=== PATIENT | female | born 2005 | race African-American/Black ===

== ENCOUNTER 2024-03-25 09:01 | Observation (INO) | payer BC, SELFPAY ==
[2024-03-25 10:12] LABS: Appearance Urine UA CLEAR; Bilirubin Urine UA NEGATIVE (NEGATIVE); Color Urine UA YELLOW; Glucose Urine UA 2+ g/dL (Negative); Ketones Urine UA 1+ (NEGATIVE); Leukocyte Esterase Urine UA NEGATIVE (NEGATIVE); Nitrite Urine UA NEGATIVE (Negative); Occult Blood Urine UA NEGATIVE (Negative); Protein Urine UA TRACE (Negative); Urobilinogen Urine UA 0.2 E.U./dL (0.2)
[2024-03-25 10:23] LABS: Bacteria Urine None Seen; Culture Indicated Urine Specimen Cultured; RBC Urine None Seen (0-5/HPF); Sperm Urine P; Squamous Epithelial Cell Urine 1-5 /HPF (0-5/HPF); Urine Volume 10mL (spun); WBC Urine 1-5/HPF (0-5/HPF)
[2024-03-25 10:32] LABS: Add Manual Diff / Slide Review NO; Basophils Absolute Auto 0 /uL (0-100); Basophils Percent Auto 0.3 % (0-2); Eosinophils Absolute Auto 200 /uL (0-450); Eosinophils Percent Auto 1.5 % (2-4); Hematocrit 31.5 % (36-46); Hemoglobin 10.5 g/dL (12.0-16.0); Lymphocytes Absolute Auto 2300 /uL (1100-4500); Lymphocytes Percent Auto 20.1 % (25-40); Mean Corpuscular HGB Conc 33.4 % (30-36); Mean Corpuscular Hemoglobin 32.2 PG (26-34); Mean Corpuscular Volume 96.4 fL (80-100); Monocytes Absolute Auto 700 /uL (0-900); Neutrophils Absolute Auto 8200 /uL (1500-7000); Neutrophils Percent Auto 72.1 % (50-75); Platelet Count 179 X10^3/uL (150-400); Red Blood Cell Count 3.27 X10^6/uL (4.0-5.2); Red Cell Distribution Width 13.6 % (11.6-14.8); White Blood Cell Count 11.4 X10^3/uL (4.5-11.0)
[2024-03-25 10:39] LABS: HEMOLYSIS < 15 (0-50)
[2024-03-25 10:44] LABS: Alanine Aminotransferase 20 IU/L (<35); Albumin 3.2 g/dL (3.5-5.0); Albumin Globulin Ratio 1.1 (1.0-2.8); Alkaline Phosphatase 115 U/L (38-126); Aspartate Aminotransferase 27 IU/L (14-36); BUN Creatinine Ratio 8.6 (6-22); Bilirubin Total 0.3 mg/dL (0.2-1.3); Blood Urea Nitrogen 5 mg/dL (7-17); Calcium 8.7 mg/dL (8.4-10.2); Carbon Dioxide 19 mmol/L (22-32); Chloride 107 mmol/L (98-107); Estimated Glomerular Filt Rate > 60 mL/min (>60); Globulin 2.8 g/dL (1.7-4.1); Glucose 222 mg/dL (70-100); Potassium 3.3 mmol/L (3.4-5.1); Sodium 134 mmol/L (137-145)
[2024-03-25 10:53] LABS: Ketones (Beta-Hydroxybutyrate) 0.06 mmol/L (<0.27)
--- NOTE | 2024-03-25 10:55 | P.TNLD_ITS ---
Visit Information Visit Information Date of evaluation: 03/25/24 Primary OB Provider: [facility] On-call OB Provider: Bre Cuevas Reason for Evaluation: Yes other Comments/Additional reasons for admission: 19yo G1 at 34w1d by stated EDC with T1DM presents to triage for evaluation, 24h h/o vomiting with diarrhea now resolved. Patient states she recently spent some time with a family member that had GI illness and also experiences weekly vomiting whenever I get to a new week of the . She states that yesterday she was unable to tolerate any PO intake and vomiting approximately 5- 7x and had several episodes of diarrhea. Pt receives all PNC at [facility] secondary to T1DM. Current insulin regimen is 26u basal qAM, total of 40-50u short-acting insulin pending CGM readings. This AM pt states she felt much better and was able to eat breakfast ([employer] sandwich, sprite). She had called her primary OB for recs given repeated episodes of emesis and was instructed to present to closest facility for further evaluation Vital Signs Vital Signs: maternal VSS/afebrile, reviewed in OBIX Review of Systems Review of Systems ROS: Yes All systems reviewed with the patient and are negative except as otherwise documented Exam Vital Signs Glucose POC: 305 Const General: cooperative, healthy appearing, comfortable and well developed Nutritional Appearance: overweight Orientation: alert, awake and oriented x3 Limitations: mental status not altered HENMT Mouth: moist mucous membranes and No malodorous breath Resp Effort & Inspection: normal respiratory effort and able to speak in complete sentences Cardio Rate: regular rate Pulses: normal peripheral pulses GI Inspection: normal to inspection Palpation: soft Other: gravid, size approx dates Other: deferred Skin General: no rashes or lesions noted Neuro General: patient alert, patient awake and patient oriented x3 Extrem General: normal to inspection Psych Mental Status: mental status grossly normal Judgment: judgment good Objective Labs 03/25/24 Unknown 03/25/24 Unknown Labs: Laboratory Results - last 24 hr 03/25/24 03/25/24 09:50 Unknown WBC 11.4 H RBC 3.27 L Hgb 10.5 L Hct 31.5 L MCV 96.4 MCH 32.2 MCHC 33.4 RDW 13.6 Plt Count 179 Neut % (Auto) 72.1 Lymph % (Auto) 20.1 L [place] % (Auto) 6.0 Eos % (Auto) 1.5 L Baso % (Auto) 0.3 Neut # (Auto) 8200 H Lymph # (Auto) 2300 [place] # (Auto) 700 Eos # (Auto) 200 Baso # (Auto) 0 Sodium 134 L Potassium 3.3 L Chloride 107 Carbon Dioxide 19 L BUN 5 L Creatinine 0.58 Estimated GFR > 60 BUN/Creatinine Ratio 8.6 Glucose 222 H Calcium 8.7 Total Bilirubin 0.3 AST 27 ALT 20 Alkaline Phosphatase 115 Total Protein 6.0 L Albumin 3.2 L Globulin 2.8 Albumin/Globulin Ratio 1.1 Urine Color Yellow Urine Appearance Clear Urine pH 7.0 Ur Specific [place] 1.020 Urine Protein Trace H Urine Glucose (UA) 2+ H Urine Ketones 1+ H Urine Occult Blood Negative Urine Nitrate Negative Urine Bilirubin Negative Urine Urobilinogen 0.2 Ur Leukocyte Esterase Negative Urine RBC None seen Urine WBC 1-5/hpf Ur Squamous Epith Cells 1-5 /hpf Urine Bacteria None seen Urine Sperm P Ur Culture Indicated? Specimen cultured Vol Urine Centrifuged 10ml (spun) Evaluation Evaluation Baseline heart rate: 148 Variability: Moderate (11-25) monitor accelerations: Present Monitor Decelerations: Absent Uterine Contraction Intensity: Mild (rare uterine irritability without distinct contractions ) Category of Tracing: Reactive Status: Category l Diagnosis, Plan/Disposition Plan/Disposition Plan: 19yo G1 at 34w1d by stated EDC with personal h/o T1DM presents for evaluation, recent 24h cyclic vomiting with diarrhea now resolved r/o DKA +1 ketonuria, serum ketones negative, very mild hypokalemia (3.3) without additional lab derangement reactive NST strict precautions, encouraged to increase PO fluid intake, return precautions reviewed f/u with primary OB as scheduled 03/28/24 OB Disposition: home
[2024-03-25 11:16] VITALS: BP 118/68
--- NOTE | 2024-03-26 20:42 | P.CALLCOV_ITS ---
Call Coverage Note Note Date of Patient Contact: 03/26/24 Time of Patient Contact: 20:42 Narrative of Care Provided: 19yo G1 at 34wga by [facility], followed at [facility] in setting of insulin- dependent T1DM called L&D with c/o new onset contractions and cramping. Patient was instructed to either call provider on-call per RN or to call 911 given c/o pressure. Patient had not called answering service by 20min after first contact and provider on-call (Dr. Cuevas) called patient at home. Pt states onset of cramping/contractions x30min, currently q5-7min. Was seen on L&D 03/24 with 24h h/o n/v/d, +ketonuria without serum ketones, no s/sx of DKA. Patient and partner instructed that if ANY CONCERNS for labor that patient should proceed immediately either to our facility or if the pain is severe or if sensation of rectal pressure to call 911 for further assistance. Patient states that she would prefer to wait until tomorrow for evaluation. Reviewed with patient risk of unattended PTB with strong recommendation for evaluation if symptoms persist, do not improve with rest/hydration. Patient and partner verbalized understanding, encouraged to keep f/u with [facility] as scheduled 03/28 with low threshold to seek in-person evaluation tonight. +FM, denies VB, LOF. Had single episode of diarrhea early this AM, most recent BG 100s.
== END 2024-03-25 11:18 | disposition home or self-care (01) ==
LOC: LABOR 09:07
PROVIDERS: Admitting Provider Obstetrics & Gynecology; Referring Provider Obstetrics & Gynecology; Visit Provider Obstetrics & Gynecology
DX: O24.013 Pre-existing type 1 diabetes mellitus, in pregnancy, third trimester (principal); O26.893 Other specified pregnancy related conditions, third trimester; R11.15 Cyclical vomiting syndrome unrelated to migraine; R19.7 Diarrhea, unspecified; Z3A.34 34 weeks gestation of pregnancy
CPT/HCPCS: 36415; 59025; 80053; 81001; 82009; 85025; 87077; 87086; 87147; G0378; G0379